=== PATIENT | male | born 1975 | race African-American/Black ===

== ENCOUNTER 2019-02-22 10:36 | Emergency (ER) | payer SELFPAY ==
[~2019-02-22] VITALS: Ht 180.3 cm; Wt 142.9 kg
[~2019-02-22 10:36] MED LIST: AMOX500C PO
[2019-02-22 10:40] VITALS: BP 143/94
[2019-02-22] MEDS ORDERED: FAMO20TA5 PO (10:57)
[2019-02-22] MEDS ORDERED: TRIA15OI TP (10:57)
[2019-02-22] MEDS ORDERED: HYDR25TA PO (10:57)
--- NOTE | 2019-02-22 10:57 | PHYS DOC ---
Past Medical History Past Medical History: No Pertinent History Past Surgical History: No Surgical History Alcohol Use: None Drug Use: None Adult General Chief Complaint Chief Complaint: INSECT BITE HPI HPI Patient is a 43 year old male with no significant medical history who presents to the ED today complaining of a pruritic rash to bilateral lower extremity that began over the weekend after spending the day outside in a barbecue today. Patient believes he got bit by some sort of insect. Denies any fever. Has been using [id number] remedies with minimal relief. Denies any fever. Review of Systems Review of Systems Constitutional: Denies fever or chills [] Eyes: Denies change in visual acuity, redness, or eye pain [] HENT: Denies nasal congestion or sore throat [] Respiratory: Denies cough or shortness of breath [] Cardiovascular: No additional information not addressed in HPI [] GI: Denies abdominal pain, nausea, vomiting, bloody stools or diarrhea [] : Denies dysuria or hematuria [] Musculoskeletal: Denies back pain or joint pain [] Integument: Reports insect bites to bilateral lower extremities. Neurologic: Denies headache, focal weakness or sensory changes [] All other systems were reviewed and found to be within normal limits, except as documented in this note. Allergies Allergies Allergies Coded Allergies Type Severity Reaction Last Updated Verified No Known Drug Allergies 06/04/18 No Physical Exam Physical Exam Constitutional: Well developed, well nourished, no acute distress, non-toxic appearance. [] HENT: Normocephalic, atraumatic, bilateral external ears normal, oropharynx moist, no oral exudates, nose normal. [] Eyes: PERRLA, EOMI, conjunctiva normal, no discharge. [] Neck: Normal range of motion, no tenderness, supple, no stridor. [] Cardiovascular:Heart rate regular rhythm, no murmur [] Lungs & Thorax: Bilateral breath sounds clear to auscultation [] Abdomen: Bowel sounds normal, soft, no tenderness, no masses, no pulsatile masses. [] Skin: Warm, dry, bilateral lower extremities with mild amount of erythematous papular rash consistent of insect bites. Negative Homans sign bilaterally. Back: No tenderness, no CVA tenderness. [] Extremities: No tenderness, no cyanosis, no clubbing, ROM intact, no edema. [] Neurologic: Alert and oriented X 3, normal motor function, normal sensory function, no focal deficits noted. [] Psychologic: Affect normal, judgement normal, mood normal. [] EKG EKG [] Radiology/Procedures Radiology/Procedures [] Course & Med Decision Making Course & Med Decision Making Pertinent Labs and Imaging studies reviewed. (See chart for details) This is a 43-year-old male patient who presents to the ED today with insect bites to bilateral lower extremities that occurred over the weekend. Will be discharged triamcinolone cream, hydroxyzine and Pepcid follow-up PCP next week. Dragon Disclaimer Dragon Disclaimer This electronic medical record was generated, in whole or in part, using a voice recognition dictation system. Departure Departure Impression: Primary Impression: Insect bites Disposition: 01 HOME, SELF-CARE Condition: STABLE Referrals: NO PCP (PCP) Follow-up with your doctor in 1-2 weeks Patient Instructions: Insect Bite, [id number] Additional Instructions: You were evaluated in the emergency room for insect bites to bilateral lower extremities, use prescribed medications as ordered. Follow-up with your doctor in 1-2 weeks. Scripts Famotidine (FAMOTIDINE) 20 Mg Tablet 20 MG PO DAILY, #7 TAB Prov: JOSELINE GARZA APRN 02/22/19 Triamcinolone Acetonide (TRIAMCINOLONE ACETONIDE 0.1% OINT) 15 Gm Oint...g. 1 NI TP TID for WOUND CARE, #1 TUBE Prov: JOSELINE GARZA APRN 02/22/19 Hydroxyzine Hcl (HYDROXYZINE HCL) 25 Mg Tablet 1 TAB PO TID, #30 TAB Prov: JOSELINE GARZA APRN 02/22/19 Problem Qualifiers Primary Impression: Insect bites Encounter type: initial encounter Site of insect bite: lower leg Laterality: left Qualified Codes: S80.862A - Insect bite (nonvenomous), left lower leg, initial encounter; W57.XXXA - Bitten or stung by nonvenomous insect and other nonvenomous arthropods, initial encounter JOSELINE GARZA APRN Feb 22, 2019 10:57
== END 2019-02-22 11:01 | disposition home or self-care (01) ==
LOC: ER 10:36
DX: S80.862A Insect bite (nonvenomous), left lower leg, initial encounter (principal); S80.861A Insect bite (nonvenomous), right lower leg, initial encounter; W57.XXXA Bitten or stung by nonvenomous insect and other nonvenomous arthropods, initial encounter; Y93.89 Activity, other specified; Y92.89 Other specified places as the place of occurrence of the external cause; Y99.8 Other external cause status
CPT/HCPCS: 99283

== ENCOUNTER → 2021-04-11 | Outpatient (CLI) | payer OTHER ==
[~2021-04-11] MED LIST changes: +FAMO20TA5 PO; +HYDR25TA PO; +TRIA15OI TP
--- NOTE | 2021-04-11 16:34 | KCIC ---
Examination: 3 views of the left knee HISTORY: History of left knee pain, pain COMPARISON: None available FINDINGS: Moderate joint space loss medial, lateral, patellofemoral compartments. Fragmented appearance of the tibial tuberosity. IMPRESSION: Moderate tricompartmental degenerative changes. Electronically signed by: Francisco Campoverde MD (04/11/2021 4:31 PM) [id number]
== END ==
LOC: KCIC 15:40
PROVIDERS: ATTEND Family Medicine
DX: M17.12 Unilateral primary osteoarthritis, left knee (principal)
CPT/HCPCS: 73562